=== PATIENT | male | born 1950 | race Caucasian/White ===

== ENCOUNTER 2021-08-24 08:26 | Outpatient (CLI) | payer MEDICARE, SELFPAY ==
[2021-08-24 08:42] LABS: Add Urine Microscopic? YES; Appearance Urine Clear (Clear); Basophils Absolute Auto 0.08 K/mm3 (0.00-0.10); Basophils Percent Auto 1.2 % (0.0-1.0); Bilirubin Urine Negative (Negative); Blood Urine 1+ (Negative); Color Urine Yellow (Yellow); Eosinophils Absolute Auto 0.26 K/mm3 (0.02-0.50); Eosinophils Percent Auto 3.9 % (1.0-6.0); Glucose Urine UA Negative (Negative); Hematocrit 49.4 % (37.0-46.0); Hemoglobin 15.7 g/dL (12.4-15.3); Immature Granulocyte Absolute 0.01 K/mm3 (0.00-0.00); Immature Granulocyte Percent A 0.2 % (0.0-0.0); Ketones Urine Negative (Negative); Leukocyte Esterase Ur Negative (Negative); Lymphocytes Percent Auto 36.3 % (18.0-42.0); Mean Corpuscular HGB Conc 31.8 g/dL (32.0-36.0); Mean Corpuscular Hemoglobin 28.6 pg (27.0-31.0); Mean Corpuscular Volume 90.1 fL (78.0-102.0); Mean Platelet Volume 8.8 fl (8.7-11.0); Monocytes Percent Auto 7.6 % (2.0-11.0); Neutrophils Absolute Auto 3.4 K/mm3 (1.7-7.2); Neutrophils Percent Auto 50.8 % (50.0-70.0); Nitrate Urine Negative (Negative); Platelet Count Result 253 K/mm3 (150-420); Protein Urine Negative (Negative); Red Blood Count 5.48 M/mm3 (4.70-6.10); Red Cell Distribution Width 13.3 % (11.6-14.4); Specific Grav Ur 1.025 (1.010-1.020); Urobilinogen Urine 0.2 mg/dL (0.2-1.0); White Blood Count 6.6 K/mm3 (4.8-10.8)
[2021-08-24 08:52] LABS: Bacteria Urine Trace /hpf; Mucus Urine Few /lpf; RBC Urine 0-2 /hpf (0-2); Squamous Epithelial Cell Urine Occasional /hpf (Few); WBC Urine None seen /hpf (0-3)
[2021-08-24 08:56] LABS: Hemoglobin A1C 5.1 % (<5.7)
[2021-08-24 09:41] LABS: Alanine Aminotransferase 17 U/L (16-63); Albumin Level 3.9 g/dL (3.4-5.0); Alkaline Phosphatase 56 U/L (46-116); Anion Gap 5 mmol/L (8-16); Aspartate Amino Transferase 13 U/L (15-37); Bilirubin,Total 0.7 mg/dL (0.00-1.00); Blood Urea Nitrogen 19 mg/dL (7-18); Calcium 8.7 mg/dL (8.5-10.1); Carbon Dioxide 30 mmol/L (21-32); Chloride 107 mmol/L (98-108); Cholesterol 170 mg/dL (0-200); Estimated Glomerular Filt Rate > 60; Glucose 85 mg/dL (70-99); HDL Direct 60 mg/dL (40-60); LDL Cholesterol Calculated 98 mg/dL (<130); Osmolality Calculated 295 mOsm/kg (285-295); Potassium 4.7 mmol/L (3.5-5.1); Sodium 142 mmol/L (136-145); Total Protein 6.5 g/dL (6.4-8.2); Triglycerides 61 mg/dL (0-150)
== END 2021-08-24 08:27 | disposition home or self-care (01) ==
LOC: CHSLAB 08:30
PROVIDERS: PCP Internal Medicine; Visit Provider Internal Medicine
DX: R73.01 Impaired fasting glucose (principal); R97.20 Elevated prostate specific antigen [PSA]; N40.1 Benign prostatic hyperplasia with lower urinary tract symptoms; G20 Parkinson's disease; Z13.6 Encounter for screening for cardiovascular disorders
CPT/HCPCS: 36415; 80053; 80061; 81001; 83036; 85025

== ENCOUNTER 2022-01-09 18:21 | Emergency (ER) | payer MEDICARE, OTHER, SELFPAY ==
[2022-01-09 18:30] VITALS: BP 142/80; PULSE 80; RESP 20; TEMP 36.6; O2SAT 98
--- NOTE | 2022-01-09 18:38 | ECG_ITS ---
Measurements Intervals [place] Rate: 78 P: 50 FL: 163 QRS: -17 QRSD: 80 T: 29 QT: 326 QTc: 373 Interpretive Statements POOR DATA QUALITY BECAUSE OF BASELINE ARTIFACT NORMAL SINUS RHYTHM LOW QRS VOLTAGE NONSPECIFIC T-WAVE ABNORMALITY ABNORMAL RHYTHM ECG NO PREVIOUS ECG AVAILABLE FOR COMPARISON Electronically Signed On 01-10-2022 12:09:54 CDT by Enoc Quintana M.D.
[2022-01-09 18:59] LABS: Basophils Absolute Auto 0.08 K/mm3 (0.00-0.10); Basophils Percent Auto 0.9 % (0.0-1.0); Eosinophils Absolute Auto 0.15 K/mm3 (0.02-0.50); Eosinophils Percent Auto 1.7 % (1.0-6.0); Hematocrit 48.3 % (37.0-46.0); Hemoglobin 15.7 g/dL (12.4-15.3); Immature Granulocyte Absolute 0.03 K/mm3 (0.00-0.00); Immature Granulocyte Percent A 0.3 % (0.0-0.0); Lymphocytes Absolute Auto 2.07 K/mm3 (1.10-4.50); Mean Corpuscular HGB Conc 32.5 g/dL (32.0-36.0); Mean Corpuscular Hemoglobin 28.8 pg (27.0-31.0); Mean Corpuscular Volume 88.6 fL (78.0-102.0); Mean Platelet Volume 8.7 fl (8.7-11.0); Monocytes Absolute Auto 0.52 K/mm3 (0.10-0.90); Neutrophils Absolute Auto 5.8 K/mm3 (1.7-7.2); Neutrophils Percent Auto 67.1 % (50.0-70.0); Platelet Count Result 284 K/mm3 (150-420); Red Blood Count 5.45 M/mm3 (4.70-6.10); Red Cell Distribution Width 13.4 % (11.6-14.4); White Blood Count 8.6 K/mm3 (4.8-10.8)
--- NOTE | 2022-01-09 18:59 | PC.NURSE ---
report to hardeep rn
[2022-01-09] MEDS: SODIUM CHLORIDE 0.9% IV 1,000 ML 999 ML IV CONT (19:00)
[2022-01-09 19:27] LABS: Alanine Aminotransferase 18 U/L (16-63); Albumin Level 4.2 g/dL (3.4-5.0); Alkaline Phosphatase 57 U/L (46-116); Anion Gap 9 mmol/L (8-16); Aspartate Amino Transferase 12 U/L (15-37); Bilirubin,Total 0.6 mg/dL (0.00-1.00); Blood Urea Nitrogen 22 mg/dL (7-18); Calcium 9.2 mg/dL (8.5-10.1); Carbon Dioxide 27 mmol/L (21-32); Chloride 105 mmol/L (98-108); Estimated CRCL calculation 67 ml/min; Estimated Glomerular Filt Rate > 60; Glucose 116 mg/dL (70-99); Osmolality Calculated 296 mOsm/kg (285-295); Sodium 141 mmol/L (136-145); Thyroid Stimulating Hormone 1.83 uIU/mL (0.36-3.74); Total Protein 7.2 g/dL (6.4-8.2)
--- NOTE | 2022-01-09 19:48 | ED.WEAKNESS ---
HPI - Weakness General Chief complaint: Weakness Stated complaint: thought he was going to pass out and fall Time Seen by Provider: 01/09/22 18:25 Source: patient and family Mode of arrival: ambulatory Limitations: no limitations History of Present Illness HPI Narrative: this is a 71-year-old gentleman with history of Parkinson's disease sees a neurologist and recently had a dose adjustment of his car believe 0 dopa. Patient has been having dizzy spells over the last 2 to 3 days especially when he gets up and stands or sits up abruptly. Currently there is no chest pain no fever chills no nausea vomiting no abdominal pain. MD Complaint: generalized weakness Duration: intermittent Severity: mild Exacerbating factors: movement Context: new medication Related Data Home Medications Medication Instructions Recorded Confirmed buspirone 10 mg tablet 10 mg PO BID 01/09/22 01/09/22 carbidopa 25 mg-levodopa 250 mg 1 tablet PO DAILY 01/09/22 01/09/22 tablet clonazepam 0.5 mg tablet 0.5 mg PO HS 01/09/22 01/09/22 finasteride 5 mg tablet 5 mg PO DAILY 01/09/22 01/09/22 tamsulosin 0.4 mg capsule 0.4 mg PO DAILY 01/09/22 01/09/22 Allergies Allergy/AdvReac Type Severity Reaction Status Date / Time No Known Allergies Allergy Unknown Verified 07/19/12 14:53 Review of Systems Review of Systems: All systems reviewed & are unremarkable except as noted in HPI and below PMFSH Past Medical History Medical History Parkinsons disease Social History Social History Smoking status: Never smoker Exam Const: General: healthy appearing and no acute distress HENMT: Head: normal to inspection Mouth: Yes Normal oral and palatal mucosa present Eyes: Conjunctivae: conjunctivae normal Pupils: Equal, round and reactive pupils present EOM: EOMs intact bilaterally Neck: Neck: normal visual inspection, no lymphadenopathy and no meningeal signs Chest: Chest palpation & inspection: normal inspection of the chest Resp: Effort & Inspection: normal respiratory effort Cardio: Rate: regular rate Rhythm: regular rhythm GI: GI Palp: Yes Soft to palpation Auscultation: normal bowel sounds Urinary Catheter: Urinary Catheter: patent and draining Back/Spine/Pelvis: Back: no CVA tenderness Skin: General skin exam: normal color Rashes: no rashes Wounds: no wounds Neuro: General: patient oriented x3, moves all extremities, no meningeal signs and no focal motor deficits Cranial nerves: Yes Nystagmus not present Speech: normal speech Gait exam (Neuro): Normal gait present Extrem: General: normal to inspection and no clubbing, cyanosis or edema Psych: Mental Status: mental status grossly normal Affect: normal affect Course Course Emergency Course: EKG and blood work reviewed with patient, patient received a dose of meclizine and advised to follow-up with his neurologist. Vital Signs Vital signs: Vital Signs Temperature 36.6 C 01/09/22 18:30 Pulse Rate 80 01/09/22 18:30 Respiratory Rate 20 01/09/22 18:30 Blood Pressure 142/80 H 01/09/22 18:30 Pulse Oximetry 98 01/09/22 18:30 Oxygen Delivery Room Air 01/09/22 18:30 Temperature 36.6 C 01/09/22 18:30 Pulse Rate 80 01/09/22 18:30 Respiratory Rate 20 01/09/22 18:30 Blood Pressure 142/80 H 01/09/22 18:30 Pulse Oximetry 98 01/09/22 18:30 Oxygen Delivery Room Air 01/09/22 18:30 MDM - Weakness Lab Data Result diagrams: 01/09/22 18:57 01/09/22 18:57 Labs: Lab Results 01/09/22 01/09/22 Range/Units 18:57 18:57 WBC 8.6 (4.8-10.8) K/mm3 RBC 5.45 (4.70-6.10) M/mm3 Hgb 15.7 H (12.4-15.3) g/dL Hct 48.3 H (37.0-46.0) % MCV 88.6 (78.0-102.0) fL MCH 28.8 (27.0-31.0) pg MCHC 32.5 (32.0-36.0) g/dL RDW 13.4 (11.6-14.4) % Plt Count 284 (150-420) K/mm3 MPV 8.7
[2022-01-09 19:57] VITALS: BP 130/88; PULSE 78; RESP 20; TEMP 36.6; O2SAT 96
[2022-01-09] MEDS: MECLIZINE HCL 25 MG TABLET PO (20:09)
== END 2022-01-09 20:09 | disposition home or self-care (01) ==
PROVIDERS: Emergency Provider Emergency Medicine; PCP Internal Medicine
DX: R42 Dizziness and giddiness (principal); G20 Parkinson's disease; Z79.899 Other long term (current) drug therapy
CPT/HCPCS: 36415; 80053; 84443; 84484; 85025; 93005; 96360; 99284; A9270; J7030

== ENCOUNTER 2022-03-26 09:12 | Outpatient (CLI) | payer MEDICARE, SELFPAY ==
[2022-03-26 10:25] LABS: Vitamin B12 1167 pg/mL (193-986)
== END 2022-03-26 09:13 | disposition home or self-care (01) ==
LOC: CHSLAB 09:15
PROVIDERS: PCP Internal Medicine; Visit Provider Internal Medicine
DX: E53.8 Deficiency of other specified B group vitamins (principal)
CPT/HCPCS: 36415; 82607

== ENCOUNTER 2023-02-06 11:00 | Outpatient (RCR) | payer MEDICARE, OTHER, SELFPAY | END 2023-02-26 13:05 | disposition home or self-care (01) | LOC: CHSSENLIFE 11:00 | PROVIDERS: PCP Internal Medicine; Visit Provider Psychiatry & Neurology Psychiatry | DX: F33.1 Major depressive disorder, recurrent, moderate (principal); F41.9 Anxiety disorder, unspecified | CPT/HCPCS: 90792; 90837; 99213; G0463 ==

== ENCOUNTER 2023-05-05 11:51 | Outpatient (CLI) | payer MEDICARE, OTHER, SELFPAY ==
--- NOTE | ~2023-05-05 | XR_ITS ---
EXAMINATION: XR chest 2V DATE: 05/05/2023 12:16 INDICATION: Cough and wheezing TECHNIQUE: PA and lateral views of the chest are obtained. COMPARISON: 03/12/2019 FINDINGS: The lungs are free of acute opacities. No pleural effusion or pneumothorax. The cardiomedia stinal silhouette is normal. There is mild thoracic spondylosis. IMPRESSION: 1. No acute cardiopulmonary abnormality. Reviewed, dictated and finalized at location L. [employer]
[2023-05-05 12:07] LABS: Basophils Absolute Auto 0.12 K/mm3 (0.00-0.10); Basophils Percent Auto 1.5 % (0.0-1.0); Eosinophils Absolute Auto 0.42 K/mm3 (0.02-0.50); Eosinophils Percent Auto 5.2 % (1.0-6.0); Hematocrit 47.1 % (37.0-46.0); Hemoglobin 15.3 g/dL (12.4-15.3); Immature Granulocyte Absolute 0.03 K/mm3 (0.00-0.00); Immature Granulocyte Percent A 0.4 % (0.0-0.0); Lymphocytes Absolute Auto 2.04 K/mm3 (1.10-4.50); Lymphocytes Percent Auto 25.4 % (18.0-42.0); Mean Corpuscular HGB Conc 32.5 g/dL (32.0-36.0); Mean Corpuscular Volume 89.4 fL (78.0-102.0); Mean Platelet Volume 8.5 fl (8.7-11.0); Monocytes Absolute Auto 0.58 K/mm3 (0.10-0.90); Monocytes Percent Auto 7.2 % (2.0-11.0); Neutrophils Absolute Auto 4.9 K/mm3 (1.7-7.2); Neutrophils Percent Auto 60.3 % (50.0-70.0); Platelet Count Result 260 K/mm3 (150-420); Red Blood Count 5.27 M/mm3 (4.70-6.10); Red Cell Distribution Width 13.6 % (11.6-14.4)
[2023-05-05 12:17] LABS: Anion Gap 2 mmol/L (8-16); Blood Urea Nitrogen 20 mg/dL (7-18); Calcium 8.8 mg/dL (8.5-10.1); Carbon Dioxide 34 mmol/L (21-32); Chloride 101 mmol/L (98-108); Estimated Glomerular Filt Rate > 60; Glucose 82 mg/dL (70-99); Osmolality Calculated 285 mOsm/kg (285-295); Potassium 4.2 mmol/L (3.5-5.1); Sodium 137 mmol/L (136-145)
== END 2023-05-05 11:52 | disposition home or self-care (01) ==
LOC: CHSLAB 11:53
PROVIDERS: PCP Internal Medicine; Visit Provider Internal Medicine
DX: R05.9 Cough, unspecified (principal)
CPT/HCPCS: 36415; 71046; 80048; 85025

== ENCOUNTER 2023-07-17 09:42 | Outpatient (CLI) | payer MEDICARE, OTHER, SELFPAY ==
--- NOTE | ~2023-07-17 | CT_ITS ---
CT Scan of the Chest without Contrast: Clinical Indication: Cough, dyspnea Technique: Contiguous sections were acquired throughout the chest without intravenous contrast. Dose reduction technique was used on this scan by utilizing automated exposure control and iterative recon struction technique. The dose-length product (DLP) was 392.03 mGy-cm. Findings: There is no evidence of any significant mediastinal, hilar or axillary lymphadenopathy. The mediastin al soft tissues appear normal. Small pericardial effusion present. There is no evidence of pleural effusion. There is linear bibasilar scarring or atelectasis. Calcified right lower lobe granuloma present. Ther e is pulmonary cyst or focal bulla at the anteromedial left upper lobe. Images through the upper abdomen reveal no abnormalities. Impression: Linear bibasilar scarring or atelectasis. Small pericardial effusion. Reviewed, dictated and finalized at [facility]. [employer]BL[employer] ADJUSTER Impression: Linear bibasilar scarring or atelectasis. Small pericardial effusion.
[2023-07-17 10:58] LABS: Hematocrit 47.6 % (37.0-46.0); Hemoglobin 15.4 g/dL (12.4-15.3); Mean Corpuscular HGB Conc 32.4 g/dL (32.0-36.0); Mean Corpuscular Hemoglobin 28.8 pg (27.0-31.0); Mean Corpuscular Volume 89.1 fL (78.0-102.0); Mean Platelet Volume 8.8 fl (8.7-11.0); Platelet Count Result 266 K/mm3 (150-420); Red Blood Count 5.34 M/mm3 (4.70-6.10); Red Cell Distribution Width 13.8 % (11.6-14.4); White Blood Count 9.8 K/mm3 (4.8-10.8)
[2023-07-17 11:17] LABS: Alanine Aminotransferase 10 U/L (16-63); Albumin Level 3.6 g/dL (3.4-5.0); Alkaline Phosphatase 52 U/L (46-116); Anion Gap 8 mmol/L (8-16); Aspartate Amino Transferase 14 U/L (15-37); Bilirubin,Total 0.6 mg/dL (0.00-1.00); Blood Urea Nitrogen 29 mg/dL (7-18); Calcium 8.6 mg/dL (8.5-10.1); Carbon Dioxide 30 mmol/L (21-32); Chloride 104 mmol/L (98-108); Estimated Glomerular Filt Rate > 60; Glucose 81 mg/dL (70-99); Osmolality Calculated 298 mOsm/kg (285-295); Potassium 4.1 mmol/L (3.5-5.1); Sodium 142 mmol/L (136-145)
[2023-07-17 14:43] LABS: Band Neutrophils Percent 0 % (0-6); Eosinophils Absolute Manual 0.09 K/mm3 (0.02-0.5); Eosinophils Percent Manual 1 % (1-6); Lymphocytes Absolute Manual 2.25 K/mm3 (1.1-4.5); Lymphocytes Percent Manual 23 % (18-44); Monocytes Absolute Manual 0.49 K/mm3 (0.1-0.90); Monocytes Percent Manual 5 % (3-9); Neutrophils Absolute Manual 6.95 K/mm3 (1.3-6.7); Neutrophils Percent Manual 71 % (46-73); Platelet Estimate Adequate (Adequate); Total Cells Counted 100
[2023-07-24 02:57] LABS: Immunoglobulin E 114 kU/L (<=114)
== END 2023-07-17 09:43 | disposition home or self-care (01) ==
LOC: CHSIMG 09:43
PROVIDERS: PCP Internal Medicine; Visit Provider Internal Medicine
DX: R05.9 Cough, unspecified (principal); I31.39 Other pericardial effusion (noninflammatory)
CPT/HCPCS: 36415; 71250; 80053; 82785; 85025

== ENCOUNTER 2023-08-03 10:46 | Outpatient (CLI) | payer MEDICARE, OTHER, SELFPAY ==
--- NOTE | ~2023-08-03 | US_ITS ---
EXAMINATION: US soft tissue UE LT DATE: 08/03/2023 11:02 INDICATION: Left thumb mass TECHNIQUE: Multiple grayscale and Doppler ultrasound images of the left thumb were obtained. COMPARISON: None FINDINGS: There is a 9 x 7 x 8 mm well-defined subcutaneous nodule at the region of concern which is isoechoic to the surrounding soft tissues. IMPRESSION: 1. Nonspecific 9 mm subcutaneous nodule at the region of concern for which differential would include neoplasm either benign or malignant and given history of prior trauma with scar tissue would also in clude epidermoid cyst and inflammatory pseudomass/foreign body granuloma on the differential. Reviewed, dictated and finalized at location B. IMPRESSION: 1. Nonspecific 9 mm subcutaneous nodule at the region of concern for which diff erential would include neoplasm either benign or malignant and given history of prior trauma with scar tissue would also include epidermoid cyst and inflammat ory pseudomass/foreign body granuloma on the differential.
--- NOTE | 2023-08-03 13:37 | ECHO_ITS ---
Patient Info Name: Abimael No Age: 72 years : 1950 Gender: Male Ht: 76 in Wt: 225 lbs BSA: 2.35 m2 HR: 75 bpm BP: 143 / 85 mmHg Heart Rhythm: Sinus Rhythm Technical Quality: Good Exam Date: 08/03/2023 1:49 PM Exam Location: Echo Lab Patient Status: Outpatient Admit Date: 08/03/2023 Staff Ordering Physician: Madeleine Pelaez MD Car Varnisher: Forrest Hopper RDCS Attending Provider: Madeleine Pelaez MD Referring Physician: Latanya NORTH; Exam Type: CA echo doppler color flow Study Info Indications - sob Complete two-dimensional, color flow and Doppler transthoracic echocardiogram is performed. Summary 1. Complete two-dimensional, color flow and Doppler transthoracic echocardiogram is performed. 2. Left ventricular chamber dimension is normal. 3. Left ventricular systolic function is normal, estimated at 65-70%. 4. The left ventricular diastolic function is grade I diastolic dysfunction. 5. E/e' 8 is minimally elevated. 6. There is trace tricuspid valve regurgitation. 7. No pulmonary hypertension, estimated pulmonary arterial systolic pressure is 28 mmHg. 8. The aortic root size at the sinus of Valsalva is borderline dilated at 4.1 cm. Left Ventricle E/e' 8 is minimally elevated. Left ventricular chamber dimension is normal. Left ventricular systolic function is normal, estimated at 65-70%. The left ventricular diastolic function is grade I diastolic dysfunction. Right Ventricle Right ventricular systolic function is normal and with normal TAPSE 3.0 cm. Right ventricular chamber dimension is normal. Left Atria Left atrial chamber dimension is normal. Right Atria Right atrial chamber dimension is normal. Aortic Valve The aortic valve is trileaflet. There is no aortic valve stenosis. There is no aortic valve regurgitation. Pulmonic Valve There is no pulmonic regurgitation. Mitral Valve There is no mitral valve stenosis. There is no mitral valve regurgitation. Tricuspid Valve There is trace tricuspid valve regurgitation. No pulmonary hypertension, estimated pulmonary arterial systolic pressure is 28 mmHg. Pericardium/Pleural There is no pericardial effusion. Inferior Vena Cava Normal inferior vena cava with >50% collapse upon inspiration consistent with normal right atrial pressure, 5 mmHg. Aorta The aortic root size at the sinus of Valsalva is borderline dilated at 4.1 cm. Left Ventricular Outflow Tract Name Value Normal LVOT 2D LVOT Diameter 2.1 cm LVOT Doppler LVOT Peak Velocity 91 cm/s LVOT Peak Gradient 3 mmHg LVOT Mean Gradient 2 mmHg LVOT VTI 23 cm LVOT VTI/AV VTI Ratio 0.6 LVOT Stroke Volume 81 ml Pulmonic Valve Name Value Normal RVOT Doppler RVOT Peak Gradient 2 mmHg PV Doppler
== END 2023-08-03 10:47 | disposition home or self-care (01) ==
PROVIDERS: PCP Internal Medicine; Visit Provider Plastic Surgery
DX: R22.32 Localized swelling, mass and lump, left upper limb (principal); R06.02 Shortness of breath
CPT/HCPCS: 76882; 93306

== ENCOUNTER 2023-08-06 09:39 | Outpatient (CLI) | payer MEDICARE, OTHER, SELFPAY | END 2023-08-06 09:40 | disposition home or self-care (01) | PROVIDERS: PCP Internal Medicine; Visit Provider Internal Medicine | DX: R05.9 Cough, unspecified (principal); R06.00 Dyspnea, unspecified; R94.2 Abnormal results of pulmonary function studies | CPT/HCPCS: 94060; 94726; 94729; 95012 ==

== ENCOUNTER → 2023-08-12 11:18 | Outpatient (REF) | payer MEDICARE, OTHER, SELFPAY | LOC: ANHLAB 11:18 | PROVIDERS: PCP Internal Medicine; Visit Provider Plastic Surgery | DX: L72.0 Epidermal cyst (principal) | CPT/HCPCS: 88304 ==

== ENCOUNTER 2024-02-05 01:05 | Day surgery (SDC) | payer MEDICARE, OTHER, SELFPAY ==
[2024-01-14 12:56] VITALS: BMI 27.4
[2024-02-05 09:12] VITALS: BP 108/71; PULSE 73; RESP 20; TEMP 35.9; O2SAT 95
[2024-02-05] MEDS: LACTATED RINGERS 1,000 ML 150 ML IV CONT (09:19)
--- NOTE | 2024-02-05 09:43 | P.PNAN_ITS ---
Anes - Initial Pre Proc Eval Procedure: Operation Date: 02/05/24 10:30 Proposed Procedures p Colonoscopy - Hi Call MD Date/Time: 02/05/24 09:43 Surgeon: Hi Call MD Pre Op Diagnosis: Personal history colon polyps Patient Data Age: 73 Gender: M Height: 1.93 m Weight: 101.3 kg Last Vital Signs Temp 96.7 F L 02/05/24 09:12 Pulse 73 02/05/24 09:12 Resp 20 02/05/24 09:12 BP 108/71 02/05/24 09:12 Pulse Ox 95 02/05/24 09:12 O2 Del Method Room Air 02/05/24 09:12 Allergies Allergy/AdvReac Type Severity Reaction Status Date / Time No Known Allergies Allergy Unknown Verified 02/05/24 09:09 Home Medications Medication Instructions Recorded Confirmed Type buspirone 10 mg tablet 10 mg PO BID 01/09/22 02/05/24 History carbidopa 25 mg-levodopa 250 mg 2 tablet PO TID 01/09/22 02/05/24 History tablet clonazepam 0.5 mg tablet 0.5 mg PO HS 01/09/22 02/05/24 History finasteride 5 mg tablet 5 mg PO DAILY 01/09/22 02/05/24 History tamsulosin 0.4 mg capsule 0.4 mg PO DAILY 01/09/22 02/05/24 History cyanocobalamin (vitamin B-12) 1,000 mcg PO DAILY 01/14/24 02/05/24 History 1,000 mcg tablet (Vitamin B-12) fluticasone furoate 100 1 inh inhalation DAILY 01/14/24 02/05/24 History mcg-vilanterol 25 mcg/dose inhalation powder (Breo Ellipta) levalbuterol tartrate 45 1 inh inhalation DAILY 01/14/24 02/05/24 History mcg/actuation aerosol inhaler magnesium 500 mg tablet 500 mg PO DAILY 01/14/24 02/05/24 History meclizine 25 mg tablet 25 mg PO BID PRN dizziness 01/14/24 02/05/24 History midodrine 5 mg tablet 5 mg PO BID 01/14/24 02/05/24 History sertraline 50 mg tablet 50 mg PO DAILY 01/14/24 02/05/24 History Patient hx anesthesia problems: none Family hx anesthesia problems: none Results Review: All pre-operative results and documents have been reviewed as part of the pre- operative evaluation. ON LICENSE OF [facility] Past Medical History Medical History Parkinsons disease Social History Social History Smoking status: Never smoker Alcohol intake: never Substance use: never Substance use type: does not use Living arrangements: with family Spiritual care concerns: No Anes - Eval Final PreProcedure Day of Procedure 02/05/24 09:43 Patient weight: normal Heart: regular rate and rhythm Lungs: clear to auscultation Airway: Mallampati scale class III Neurological: alert and oriented Last oral intake: >/= 8 hours ASA classification: III Emergent: no Anesthetic plan: proceed Anesthesia type and monitoring: general GIVS and standard monitoring Results Review: All pre-operative results and documents have been reviewed as part of the pre- operative evaluation. Informed Consent: The patient's anesthetic plan and its attendant risks and benefits were discussed with the patient/family/POA. Questions were solicited and answers provided to the satisfaction of the patient/family/POA. Pt request that no resuscitative efforts be done if his heart stops..
--- NOTE | 2024-02-05 10:08 | PM.HPGS ---
History of Present Illness History of Present Illness Consent: Risks, benefits, and alternatives have been discussed and questions answered. Patient agrees to proceed with procedure. Chief complaint: Personal history colon polyps Narrative: Abimael No is a 73 year old male with colon polyp 5 years ago Review of Systems Review of Systems: All systems reviewed & are unremarkable except as noted in HPI and below PMFSH Past Medical History Medical History (Updated 02/05/24 @ 10:13 by Hi Call MD) Colon polyp Parkinsons disease Social History Social History Smoking status: Never smoker Alcohol intake: never Substance use: never Substance use type: does not use Living arrangements: with family Spiritual care concerns: No Meds Home Medications and Allergies Home Medications Medication Instructions Recorded Confirmed Type buspirone 10 mg tablet 10 mg PO BID 01/09/22 02/05/24 History carbidopa 25 mg-levodopa 250 mg 2 tablet PO TID 01/09/22 02/05/24 History tablet clonazepam 0.5 mg tablet 0.5 mg PO HS 01/09/22 02/05/24 History finasteride 5 mg tablet 5 mg PO DAILY 01/09/22 02/05/24 History tamsulosin 0.4 mg capsule 0.4 mg PO DAILY 01/09/22 02/05/24 History cyanocobalamin (vitamin B-12) 1,000 mcg PO DAILY 01/14/24 02/05/24 History 1,000 mcg tablet (Vitamin B-12) fluticasone furoate 100 1 inh inhalation DAILY 01/14/24 02/05/24 History mcg-vilanterol 25 mcg/dose inhalation powder (Breo Ellipta) levalbuterol tartrate 45 1 inh inhalation DAILY 01/14/24 02/05/24 History mcg/actuation aerosol inhaler magnesium 500 mg tablet 500 mg PO DAILY 01/14/24 02/05/24 History meclizine 25 mg tablet 25 mg PO BID PRN dizziness 01/14/24 02/05/24 History midodrine 5 mg tablet 5 mg PO BID 01/14/24 02/05/24 History sertraline 50 mg tablet 50 mg PO DAILY 01/14/24 02/05/24 History Allergies Allergy/AdvReac Type Severity Reaction Status Date / Time No Known Allergies Allergy Unknown Verified 02/05/24 09:09 Vital Signs Vital Signs - 24 hr 02/05/24 09:12 Temperature 96.7 F L Pulse Rate 73 Respiratory Rate 20 Blood Pressure 108/71 Pulse Oximetry 95 Oxygen Delivery Room Air Exam Const: General: comfortable and no acute distress HENMT: Face/Nose/Sinus: Normal nares present Eyes: General: appearance normal, both eyes and all related structures Neck: Neck: no JVD Resp: Auscultation: clear to auscultation bilaterally Cardio: Rate: regular rate Rhythm: regular rhythm GI: Inspection: non-distended GI Palp: Yes Soft to palpation Skin: General skin exam: normal color Neuro: General: gait normal Speech: normal speech Extrem: General: normal to inspection Psych: Mental Status: mental status grossly normal Assessment and Plan Assessment and plan (1) Colon polyp: Code(s): K63.5 - Polyp of colon Status: Acute Assessment and Plan: colonoscopy
[2024-02-05 10:37] VITALS: BP 108/72; PULSE 64; RESP 16; O2SAT 96
[2024-02-05 10:47] VITALS: BP 116/72; PULSE 72; RESP 17; O2SAT 97
[2024-02-05 10:57] VITALS: BP 116/78; PULSE 66; RESP 17; O2SAT 97
== END 2024-02-05 11:09 | disposition home or self-care (01) ==
PROVIDERS: PCP Internal Medicine; Visit Provider Internal Medicine Gastroenterology
PROC: 0DJD8ZZ Inspection of Lower Intestinal Tract, Via Natural or Artificial Opening Endoscopic (ICD-10-PCS; CPT 45378; principal; 2024-02-05 10:30)
DX: Z12.11 Encounter for screening for malignant neoplasm of colon (principal); D12.2 Benign neoplasm of ascending colon; D12.4 Benign neoplasm of descending colon; G20.A1 Parkinson's disease without dyskinesia, without mention of fluctuations; Z79.51 Long term (current) use of inhaled steroids
CPT/HCPCS: 45385; 88305; J2704; J7120